=== PATIENT | male | born 1990 | race Caucasian/White ===

== ENCOUNTER 2018-04-04 16:34 | Emergency (ER) | payer SELFPAY ==
[2018-04-04 16:58] VITALS: BP 137/73
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
[2018-04-04] MEDS ORDERED: PERCOCET 5/325 PO ONE (18:50)
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
== END 2018-04-04 20:10 | disposition home or self-care (01) ==
LOC: ED 16:34
DX: M54.6 Pain in thoracic spine (principal); M54.5 Low back pain; R51 Headache; J45.909 Unspecified asthma, uncomplicated; Z88.2 Allergy status to sulfonamides
CPT/HCPCS: 70450; 72072; 72100; 72125